=== PATIENT | female | born 1985 | race Caucasian/White ===

== ENCOUNTER 2017-01-04 05:56 | Emergency (ER) | payer OTHER ==
[2017-01-04 06:45] VITALS: BP 120/75; PULSE 93; RESP 18; TEMP 100.8
[2017-01-04] MEDS ORDERED: IBUPROFEN 800 MG TAB PO STA (06:48)
[2017-01-04] MEDS ORDERED: Acetaminophen-Codeine 300-30mg TAB PO STA (06:48)
[2017-01-04] MEDS ORDERED: ACETAMINOPHEN TAB 325 MG TAB PO STA (06:48)
[2017-01-04] MEDS ORDERED: DEXAMETHASONE SOD PHOSPHATE 10 MG/ML 1 ML VIAL IM STA (06:48)
[2017-01-04] MEDS ORDERED: AMOXIC-POT CLAV 875-125MG 1 EACH TAB PO STA (06:53)
--- NOTE | 2017-01-04 07:00 | ED ---
General Adult HPI - General Chief complaint: ENT Stated complaint: ent, headache Time Seen by Provider: 01/04/17 06:44 Source: patient, RN notes reviewed, old records reviewed Mode of arrival: ambulatory Limitations: no limitations - History of Present Illness Initial comments: This is a 31-year-old female ER for evaluation of fever, cough congestion and mainly sore throat. Patient's also noted recent headache. Patient denies history of no significant medical history patient does not smoke or drink. Denies any sick contacts or travel history. Patient states throat pain is the back of her throat worse on her right, able to swallowing drink. No nausea vomiting or diarrhea. No abdominal pain. No significant shortness of breath but she does have cough. Patient states she's been again sick for 2 weeks episodic thought she was getting better and is worsening symptoms started yesterday. She noted fever this morning. - Related Data Previous Rx's Medication Instructions Recorded Acetaminophen with Codeine 1 tab PO Q4H PRN #20 tab 01/04/17 [Tylenol w/codeine #3] Amoxic-Pot Clav 875-125Mg 1 tab PO Q12HR #20 tablet 01/04/17 [Augmentin 875-125] Naproxen [Naprosyn] 500 mg PO Q12HR #30 tab 01/04/17 Allergies Allergy/AdvReac Type Severity Reaction Status Date / Time No Known Allergies Allergy Verified 11/21/15 04:22 Review of Systems ROS Statement: Those systems with pertinent positive or pertinent negative responses have been documented in the HPI. ROS Other: All systems not noted in ROS Statement are negative. Past Medical History Past Medical History: No Reported History History of Any Multi-Drug Resistant Organisms: None Reported Past Surgical History: Orthopedic Surgery Additional Past Surgical History / Comment(s): arthroscopy Past Psychological History: No Psychological Hx Reported Smoking Status: Current some day smoker Past Alcohol Use History: None Reported Past Drug Use History: None Reported General Exam Limitations: no limitations General appearance: alert, in no apparent distress Head exam: Present: atraumatic, normocephalic, normal inspection Eye exam: Present: normal appearance, PERRL, EOMI. Absent: scleral icterus, conjunctival injection, periorbital swelling ENT exam: Present: other (Tonsillar pharyngitis and erythema) Neck exam: Present: normal inspection. Absent: tenderness, meningismus, lymphadenopathy Respiratory exam: Present: normal lung sounds bilaterally. Absent: respiratory distress, wheezes, rales, rhonchi, stridor Cardiovascular Exam: Present: regular rate, normal rhythm, normal heart sounds. Absent: systolic murmur, diastolic murmur, rubs, gallop, clicks GI/Abdominal exam: Present: soft, normal bowel sounds. Absent: distended, tenderness, guarding, rebound, rigid Extremities exam: Present: normal inspection, full ROM, normal capillary refill. Absent: tenderness, pedal edema, joint swelling, calf tenderness Back exam: Present: normal inspection Neurological exam: Present: alert, oriented X3, CN II-XII intact Psychiatric exam: Present: normal affect, normal mood Skin exam: Present: warm, dry, intact, normal color. Absent: rash Course Vital Signs 01/04/17 06:02 Temperature 100.8 F H Pulse Rate 93 Respiratory 18 Rate Blood Pressure 120/75 O2 Sat by Pulse 97 Oximetry - Reevaluation(s) Reevaluation #1: 01/04/17 06:57 Patient's headache is resolved since that therapy here in the emergency room Medical Decision Making - Medical Decision Making 31 female the ER for evaluation. No specific medical history no sick contacts immunizations up-to-date no travel history, patient comes in today with fever and sore throat, fevers controlled with antipyretics here in the emergency room , patient being started on Augmentin for upper respiratory infection, strep throat and to continue fever control at home Disposition Clinical Impression: Streptococcal sore throat, Bilateral otitis externa, Bilateral otitis media Disposition: HOME SELF-CARE Condition: Good Instructions: Earache (ED), Pharyngitis (ED), Strep Throat (ED) Prescriptions: Acetaminophen with Codeine [Tylenol w/codeine #3] 1 tab PO Q4H PRN #20 tab PRN Reason: Pain Amoxic-Pot Clav 875-125Mg [Augmentin 875-125] 1 tab PO Q12HR #20 tablet Naproxen [Naprosyn] 500 mg PO Q12HR #30 tab Referrals: None,Stated [Primary Care Provider] - 1-2 days
== END 2017-01-04 07:22 | disposition home or self-care (01) ==
LOC: EC 05:56
DX: J02.0 Streptococcal pharyngitis (principal); H60.93 Unspecified otitis externa, bilateral; H66.93 Otitis media, unspecified, bilateral; F17.200 Nicotine dependence, unspecified, uncomplicated
CPT/HCPCS: 99284 ×2; 96372 ×2; J1100

== ENCOUNTER 2017-04-02 18:33 | Emergency (ER) | payer OTHER ==
[2017-04-02 18:38] VITALS: BP 117/69; PULSE 94; RESP 17; TEMP 97.4
--- NOTE | 2017-04-02 18:53 | ED ---
Lower Extremity Injury HPI - General Chief Complaint: Extremity Injury, Lower Stated Complaint: left knee injury Time Seen by Provider: 04/02/17 18:34 Source: patient Mode of arrival: wheelchair Limitations: physical limitation - History of Present Illness Initial Comments: 32-year-old female presents with right knee pain that occurred a few hours prior to arrival. Patient states Tuesday fell landed on her foot and then fell back and landed on her left knee. Patient states she thinks that maybe hyperextended. She denies any numbness or tingling but just having a lot of pain with movement. Patient states she was able to ambulate but very slow movements. Patient states she feels like it's going to give out. She denies any previous injury no numbness or tingling. She did states it did swell and she has been icing it but no medications have been used. No other injury no ankle or hip pain on that side. MD Complaint: knee injury Improves With: cold therapy Worsens With: weight bearing, movement Context: direct blow - Related Data Previous Rx's Medication Instructions Recorded Ibuprofen 800 mg PO Q8HR #30 tablet 04/02/17 Allergies Allergy/AdvReac Type Severity Reaction Status Date / Time No Known Allergies Allergy Verified 04/02/17 18:38 Review of Systems ROS Statement: Those systems with pertinent positive or pertinent negative responses have been documented in the HPI. ROS Other: All systems not noted in ROS Statement are negative. Musculoskeletal: Reports: joint swelling, myalgia Neurological: Reports: abnormal gait Past Medical History Past Medical History: No Reported History History of Any Multi-Drug Resistant Organisms: None Reported Past Surgical History: Orthopedic Surgery Additional Past Surgical History / Comment(s): arthroscopy Past Psychological History: No Psychological Hx Reported Smoking Status: Current some day smoker Past Alcohol Use History: Rare Past Drug Use History: None Reported General Exam Limitations: physical limitation General appearance: alert, in no apparent distress Extremities exam: Present: normal inspection, full ROM, normal capillary refill. Absent: tenderness, pedal edema, joint swelling, calf tenderness Left Knee exam: Present: normal inspection, full ROM, tenderness (Anterior and bilateral), swelling (Minimal), pain/laxity with valgus, pain/laxity with varus , full knee extension. Absent: pain w/ pronation/supination, posterior draw sign Lower Leg exam: Present: normal inspection, full ROM. Absent: tenderness, swelling Ankle exam: Present: normal inspection, full ROM. Absent: tenderness Foot/Toe exam: Present: normal inspection, full ROM. Absent: tenderness, swelling Gait: not tested/not observed Course Vital Signs 04/02/17 18:33 Temperature 97.4 F L Pulse Rate 94 Respiratory 17 Rate Blood Pressure 117/69 O2 Sat by Pulse 98 Oximetry Medical Decision Making - Medical Decision Making Reviewed x-ray negative for any acute changes. Patient aware given knee immobilizer and Marshall wrap. Patient will put it on at home due to driving home today Disposition Clinical Impression: Knee sprain Disposition: HOME SELF-CARE Condition: Good Instructions: Knee Sprain (ED) Prescriptions: Ibuprofen 800 mg PO Q8HR #30 tablet Referrals: None,Stated [Primary Care Provider] - 1-2 days Luis Alfredo Cordova MD [Medical Doctor] - 1-2 days Time of Disposition: 19:05
--- NOTE | 2017-04-02 19:11 | XR ---
EXAMINATION TYPE: XR knee 4V LT DATE OF EXAM: 04/02/2017 COMPARISON: 10/09/2013 HISTORY: Pain TECHNIQUE: 4 views FINDINGS: I see no fracture nor dislocation. Joint spaces are normal. There is no sign of a joint eff usion. IMPRESSION: Negative left knee exam. No change.
== END 2017-04-02 19:10 | disposition home or self-care (01) ==
LOC: EC 18:33
DX: S83.92XA Sprain of unspecified site of left knee, initial encounter (principal); M25.561 Pain in right knee; F17.200 Nicotine dependence, unspecified, uncomplicated; W18.30XA Fall on same level, unspecified, initial encounter
CPT/HCPCS: 99283

== ENCOUNTER 2018-01-16 12:34 | Emergency (ER) | payer OTHER ==
[2018-01-16 12:39] VITALS: BP 110/82; PULSE 81; RESP 18; TEMP 98.6
--- NOTE | 2018-01-16 13:03 | ED ---
General Adult HPI - General Chief complaint: Extremity Problem,Nontraumatic Stated complaint: foot pain Time Seen by Provider: 01/16/18 12:48 Source: patient, RN notes reviewed Mode of arrival: ambulatory Limitations: no limitations - History of Present Illness Initial comments: Patient 32-year-old female presented to the emergency room today with chief complaint of pain to the right foot. Denies any injury or trauma. States worse with both plantar and dorsiflexion. Patient states been using Marshall wrap with some relief of symptoms. She denies any other complaints or symptoms at this time. Patient denies any recent fever, chills, shortness of breath, chest pain, back pain, abdominal pain, nausea or vomiting, headaches or visual changes , or any other complaints. - Related Data Previous Rx's Medication Instructions Recorded Ibuprofen 800 mg PO Q8HR #30 tablet 04/02/17 Ibuprofen [Motrin] 800 mg PO Q6HR #30 tab 01/16/18 Allergies Allergy/AdvReac Type Severity Reaction Status Date / Time No Known Allergies Allergy Verified 01/16/18 12:39 Review of Systems ROS Statement: Those systems with pertinent positive or pertinent negative responses have been documented in the HPI. ROS Other: All systems not noted in ROS Statement are negative. Past Medical History Past Medical History: No Reported History History of Any Multi-Drug Resistant Organisms: None Reported Past Surgical History: Orthopedic Surgery Additional Past Surgical History / Comment(s): arthroscopy Past Psychological History: No Psychological Hx Reported Smoking Status: Light tobacco smoker Past Alcohol Use History: Rare Past Drug Use History: None Reported General Exam - General Exam Comments Initial Comments: General: The patient is awake and alert, in no distress, and does not appear acutely ill. Neck: The neck is supple, there is no tenderness or JVD. Musculoskeletal: Patient has normal appearance of the right foot. No point tenderness. No tenderness or swelling. Sensation is intact pulses equal bilaterally 2+. Strength 5/5. Neurological: A&O x 3. CN II-XII intact, There are no obvious motor or sensory deficits. Coordination appears grossly intact. Speech is normal. Skin: Skin is warm and dry and no rashes or lesions are noted. Psychiatric: Normal mood and affect. Limitations: no limitations Course Vital Signs 01/16/18 12:35 Temperature 98.6 F Pulse Rate 81 Respiratory 18 Rate Blood Pressure 110/82 O2 Sat by Pulse 98 Oximetry Medical Decision Making - Medical Decision Making Patient's symptoms are consistent with plantar fasciitis. Was discussed with the patient. Advised anti-inflammatories would be preferred treatment. She is requesting some stronger. Advised that she may use Tylenol with the ibuprofen. Advised patient that stretching will help. Advised to follow-up with the family physician or orthopedics for further evaluation. Disposition Clinical Impression: Plantar fasciitis Disposition: HOME SELF-CARE Condition: Good Instructions: Plantar Fasciitis (ED) Additional Instructions: Please use medication as discussed. Please follow-up with family doctor in the next 2 days of symptoms have not improved. Please return to emergency room if the symptoms increase or worsen or for any other concerns. Prescriptions: Ibuprofen [Motrin] 800 mg PO Q6HR #30 tab Referrals: None,Stated [Primary Care Provider] - 1-2 days Time of Disposition: 13:02
== END 2018-01-16 13:21 | disposition home or self-care (01) ==
LOC: EC 12:34
DX: M72.2 Plantar fascial fibromatosis (principal); F17.200 Nicotine dependence, unspecified, uncomplicated; Z98.890 Other specified postprocedural states
CPT/HCPCS: 99282

== ENCOUNTER 2019-09-03 13:18 | Emergency (ER) | payer OTHER ==
[2019-09-03 13:33] VITALS: BP 110/80; PULSE 88; RESP 18; TEMP 98.4
[2019-09-03] MEDS ORDERED: AMOXICILLIN 500MG STARTER PACK 3 CAP BTL PO STA (14:08)
[2019-09-03] MEDS ORDERED: ACET/COD 300 MG/30 MG STARTER PACK 6 TAB BTL PO STA (14:08)
--- NOTE | 2019-09-03 14:10 | ED ---
ENT HPI - General Chief complaint: Dental/Oral Stated complaint: dental infection Time Seen by Provider: 09/03/19 13:38 Source: patient, RN notes reviewed, old records reviewed Mode of arrival: ambulatory Limitations: no limitations - History of Present Illness Initial comments: 34 year old female presents with R upper dental pain for the past few days. She reports she has had a broken tooth and plans to follow up with dentist. Denies trismus, fevers or chills. She reports some outer lip swelling. Denies recent antibiotics. MD complaint: tooth pain - Related Data Previous Rx's Medication Instructions Recorded Ibuprofen 800 mg PO Q8HR #30 tablet 04/02/17 Ibuprofen [Motrin] 800 mg PO Q6HR #30 tab 01/16/18 Amoxicillin 500 mg PO Q8H #30 capsule 09/03/19 Ibuprofen 800 mg PO TID #20 tablet 09/03/19 Allergies Allergy/AdvReac Type Severity Reaction Status Date / Time No Known Allergies Allergy Verified 09/03/19 13:33 Review of Systems ROS Statement: Those systems with pertinent positive or pertinent negative responses have been documented in the HPI. ROS Other: All systems not noted in ROS Statement are negative. Past Medical History Past Medical History: No Reported History History of Any Multi-Drug Resistant Organisms: None Reported Past Surgical History: Orthopedic Surgery Additional Past Surgical History / Comment(s): arthroscopy Past Psychological History: No Psychological Hx Reported Smoking Status: Light tobacco smoker Past Alcohol Use History: Rare Past Drug Use History: None Reported General Exam - General Exam Comments Initial Comments: 34 year old female, no distress. Limitations: no limitations General appearance: alert, in no apparent distress Head exam: Present: atraumatic, normocephalic, normal inspection Eye exam: Present: normal appearance, PERRL, EOMI. Absent: scleral icterus, conjunctival injection, periorbital swelling ENT exam: Present: normal exam, mucous membranes moist. Absent: normal oropharynx (Poor dentition. Broken tooth 10. Gingival erythema. No drainable abscess at thistime. ) Neck exam: Present: normal inspection. Absent: tenderness, meningismus, lymphadenopathy Respiratory exam: Present: normal lung sounds bilaterally. Absent: respiratory distress, wheezes, rales, rhonchi, stridor Cardiovascular Exam: Present: regular rate, normal rhythm, normal heart sounds. Absent: systolic murmur, diastolic murmur, rubs, gallop, clicks GI/Abdominal exam: Present: soft, normal bowel sounds. Absent: distended, tenderness, guarding, rebound, rigid Neurological exam: Present: alert, oriented X3, CN II-XII intact Psychiatric exam: Present: normal affect, normal mood Skin exam: Present: warm, dry, intact, normal color. Absent: rash Course Vital Signs 09/03/19 13:32 Temperature 98.4 F Pulse Rate 88 Respiratory 18 Rate Blood Pressure 110/80 O2 Sat by Pulse 99 Oximetry Medical Decision Making - Medical Decision Making 34 year old female with CC of riht upper dental pain. She has broken tooth 10. Discussed patient to follow up with dentist and will place patient on antibiotics and motrin at this time. Discussed return parameters. Disposition Clinical Impression: Pain, dental, Dental abscess Disposition: HOME SELF-CARE Condition: Good Instructions (If sedation given, give patient instructions): Abscess (ED), Toothache (ED) Additional Instructions: [facility] [address] [place] [address] [phone] (existing clients only) For new clients: [phone] 1st consult: $50 (includes Xrays) Usually 30% less then private dentist for visits after. [employer] Have to pay $50 for Xrays anmd rest is covered. [phone] Prescriptions: Amoxicillin 500 mg PO Q8H #30 capsule Ibuprofen 800 mg PO TID #20 tablet Is patient prescribed a controlled substance at d/c from ED?: No Referrals: Alex Mccauley MD [Primary Care Provider] - 1-2 days Time of Disposition: 14:08
== END 2019-09-03 14:27 | disposition home or self-care (01) ==
LOC: EC 13:18
DX: K04.7 Periapical abscess without sinus (principal); S02.5XXA Fracture of tooth (traumatic), initial encounter for closed fracture; F17.200 Nicotine dependence, unspecified, uncomplicated; X58.XXXA Exposure to other specified factors, initial encounter
CPT/HCPCS: 99283

== ENCOUNTER 2023-01-28 06:49 | Emergency (ER) | payer OTHER ==
[2023-01-28 07:21] VITALS: TEMP 98
[2023-01-28] MEDS ORDERED: HYDROcodone/APAP 5-325MG 1 EACH TAB PO STA (07:33)
[2023-01-28] MEDS ORDERED: DIPH,PERTUS(ACELL)TETVAC-LF 0.5 ML VIAL IM ONE (07:33)
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
[2023-01-28] MEDS ORDERED: ACET/COD 300 MG/30 MG STARTER PACK 6 TAB BTL PO STA (08:46)
[2023-01-28 09:23] VITALS: BP 148/66; PULSE 80; RESP 16
== END 2023-01-28 09:00 | disposition home or self-care (01) ==
LOC: EC 06:49
DX: S00.83XA Contusion of other part of head, initial encounter (principal); S09.90XA Unspecified injury of head, initial encounter; F17.200 Nicotine dependence, unspecified, uncomplicated; Z23 Encounter for immunization; Y04.8XXA Assault by other bodily force, initial encounter
CPT/HCPCS: 70450; 72125; 90471; 90715; 99284